=== PATIENT | male | born 1970 | race Caucasian/White ===

== ENCOUNTER 2023-11-08 12:47 | Inpatient (IN) | payer MEDICARE, MEDICAID ==
[~2023-11-08 12:47] MED LIST: Iopamidol 370 76% 100 ML VIAL ONE
[2023-11-08] MEDS ORDERED: Aspirin Chewable 81 MG TAB ONE (13:34)
[2023-11-08 14:31] LABS: #Basophils 0.06 10x3/uL (0.0-0.2); #Eosinphils 0.13 10x3/uL (0.0-0.5); #Monocytes 0.51 10x3/uL (0.0-1.1); #Neutrophils 5.57 10x3/uL (1.5-8.4); %Basophils 0.7 % (0.0-2.0); %Eosinophils 1.4 % (0.0-6.0); %Lymphocytes 30.5 % (18.0-47.0); %Monocytes 5.6 % (0.0-10.0); %Neutrophils 61.5 % (40.0-75.0); Hematocrit 50.4 % (38.8-50.0); Hemoglobin 17.4 g/dL (13.5-17.5); Mean Corpuscular HGB CONC 34.5 g/dL (32.0-36.0); Mean Corpuscular Hemoglobin 30.2 pg (27.0-33.0); Mean Corpuscular Volume 87.3 fL (81.2-95.1); Mean Platelet Volume 12.8 fL (7.4-10.4); Platelet Count 227 10x3/uL (150-450); RBC Distribution Width 13.8 % (11.5-14.5); Red Blood Cell (RBC) Count 5.77 10x6/uL (4.32-5.72); White Blood Cell (WBC) Count 9.1 10x3/uL (3.5-10.5)
[2023-11-08 14:37] LABS: Troponin I 0.017 ng/mL (< 0.028)
[2023-11-08 15:26] LABS: ALT (SGPT) 83 U/L (8-55); AST (SGOT) 49 U/L (5-34); Albumin 4.1 g/dL (3.5-5.0); Alkaline Phosphatase 63 U/L (40-110); Anion Gap 19 mmol/L (10-20); BUN (Urea Nitrogen) 13 mg/dL (8.4-25.7); Bilirubin, Total 0.7 mg/dL (0.2-1.2); Calc. Creatinine Clearance 0 mL/min (70-130); Calcium 9.9 mg/dL (7.8-10.44); Carbon Dioxide 20 mmol/L (22-29); Chloride 104 mmol/L (98-107); Estimated GFR 57; Globulin 3.3 g/dL (2.4-3.5); Glucose 140 mg/dL (70-105); Lipase 16 U/L (8-78); Potassium 3.8 mmol/L (3.5-5.1); Protein, Total 7.4 g/dL (6.0-8.3); Sodium 139 mmol/L (136-145)
[2023-11-08 16:11] LABS: Troponin I 0.016 ng/mL (< 0.028)
[2023-11-08] MEDS ORDERED: Ondansetron PF 4 MG/2 ML Vial IVP PRN (17:32)
[2023-11-08] MEDS ORDERED: hydrALAZINE 20 MG/ML VIAL SLOW IVP PRN (17:36)
[2023-11-08] MEDS ORDERED: Glucagon 1 MG/ML KIT IM PRN (17:37)
[2023-11-08] MEDS ORDERED: Dextrose 50% Abboject 50 ML SYRINGE SLOW IVP PRN (17:37)
[2023-11-08] MEDS ORDERED: Dextrose 5% in Water 1,000 ML IV PRN (17:37)
[2023-11-08 18:27] LABS: Troponin I 0.019 ng/mL (< 0.028)
[2023-11-08 18:37] VITALS: BMI 36.5
[2023-11-08] MEDS: Acetaminophen 325 MG TAB PO SCH (18:50)
[2023-11-08] MEDS: hydrALAZINE 25 MG TAB PO SCH (20:54)
[2023-11-08] MEDS: traMADol HCl 50 MG TAB PO PRN (20:55)
[2023-11-08] MEDS: Insulin Regular, Human 100 UNIT/ML 10 ML VIAL SC PRN (21:01)
[2023-11-08 21:26] LABS: Troponin I 0.019 ng/mL (< 0.028)
[2023-11-08] MEDS: Pantoprazole DR 40 MG TAB PO SCH (23:39)
[2023-11-09 05:22] LABS: #Basophils 0.06 10x3/uL (0.0-0.2); #Eosinphils 0.22 10x3/uL (0.0-0.5); #Monocytes 0.51 10x3/uL (0.0-1.1); #Neutrophils 4.15 10x3/uL (1.5-8.4); %Basophils 0.8 % (0.0-2.0); %Eosinophils 2.9 % (0.0-6.0); %Lymphocytes 35.7 % (18.0-47.0); %Monocytes 6.6 % (0.0-10.0); %Neutrophils 53.9 % (40.0-75.0); Hematocrit 42.5 % (38.8-50.0); Hemoglobin 14.6 g/dL (13.5-17.5); Mean Corpuscular HGB CONC 34.4 g/dL (32.0-36.0); Mean Corpuscular Hemoglobin 30.4 pg (27.0-33.0); Mean Corpuscular Volume 88.4 fL (81.2-95.1); Mean Platelet Volume 12.8 fL (7.4-10.4); Platelet Count 178 10x3/uL (150-450); RBC Distribution Width 13.9 % (11.5-14.5); Red Blood Cell (RBC) Count 4.81 10x6/uL (4.32-5.72); White Blood Cell (WBC) Count 7.7 10x3/uL (3.5-10.5)
[2023-11-09 05:25] LABS: Anion Gap 17 mmol/L (10-20); BUN (Urea Nitrogen) 17 mg/dL (8.4-25.7); Calc. Creatinine Clearance 150 mL/min (70-130); Calcium 8.5 mg/dL (7.8-10.44); Carbon Dioxide 19 mmol/L (22-29); Cardiac Risk 5.2 (Less than 4.5); Chloride 108 mmol/L (98-107); Cholesterol 141 mg/dl (< 200 Desired); Estimated GFR 77; Glucose 141 mg/dL (70-105); HDL Cholesterol 27 mg/dL (>60 Neg Risk); LDL Cholesterol, Calculated 69 mg/dL; Potassium 3.3 mmol/L (3.5-5.1); Sodium 141 mmol/L (136-145); Triglycerides 224 mg/dL (Less than 150)
[2023-11-09] MEDS ORDERED: Carvedilol 6.25 MG TAB PO SCH (08:00)
[2023-11-09] MEDS ORDERED: Fioricet 325/50/40 mg Tablet PO PRN (08:54)
[2023-11-09] MEDS ORDERED: Furosemide 40 MG TAB PO SCH (09:30)
[2023-11-09 10:18] LABS: Magnesium 1.3 mg/dL (1.6-2.6)
[2023-11-09] MEDS: Aspirin Chewable 81 MG TAB PO SCH (10:20)
[2023-11-09] MEDS: Lisinopril 5 MG TAB PO SCH (10:20)
[2023-11-09] MEDS: Amlodipine 10 MG TAB PO SCH (10:20)
[2023-11-09] MEDS: Fioricet 325/50/40 mg Tablet PO SCH (10:21)
[2023-11-09] MEDS: Carvedilol 12.5 MG TAB PO SCH ×2 (10:21→17:00)
[2023-11-09] MEDS: Potassium Chloride 20 MEQ TAB PO SCH (10:21)
[2023-11-09] MEDS ORDERED: Communication Order-Pharmacy FS SCH (11:00)
[2023-11-09] MEDS: Magnesium 2 GM/50 ML(in water) 2 GM in Premix 1 BAG IVPB SCH (13:28)
[2023-11-09 13:46] LABS: Hemoglobin A1c 6.4 % (4.0-6.0)
[2023-11-09 15:35] LABS: Bilirubin Neg (Negative); Blood, Urine Negative (Negative); Clarity Clear (Clear); Glucose, Urine (Dipstick) Normal (Negative); Ketone, Urine 5 mg/dL (Negative); Leukocyte 25 (Negative); Nitrite Negative (Negative); Protein, Urine (Dipstick) 15 mg/dl (Neg-Trace); Urobilinogen Normal mg/dL (Less than 2)
[2023-11-10 03:44] LABS: PTT 24.5 sec (22.0-33.0); Prothrombin Time 10.6 sec (9.5-12.1)
[2023-11-10 05:01] LABS: ALT (SGPT) 63 U/L (8-55); AST (SGOT) 34 U/L (5-34); Magnesium 2.1 mg/dL (1.6-2.6)
[2023-11-10 05:09] LABS: #Basophils 0.06 10x3/uL (0.0-0.2); #Eosinphils 0.24 10x3/uL (0.0-0.5); #Monocytes 0.46 10x3/uL (0.0-1.1); #Neutrophils 3.87 10x3/uL (1.5-8.4); %Basophils 0.8 % (0.0-2.0); %Eosinophils 3.3 % (0.0-6.0); %Lymphocytes 35.8 % (18.0-47.0); %Monocytes 6.4 % (0.0-10.0); %Neutrophils 53.4 % (40.0-75.0); Hematocrit 45.2 % (38.8-50.0); Mean Corpuscular HGB CONC 33.2 g/dL (32.0-36.0); Mean Corpuscular Volume 90.4 fL (81.2-95.1); Mean Platelet Volume 12.6 fL (7.4-10.4); Platelet Count 186 10x3/uL (150-450); RBC Distribution Width 13.8 % (11.5-14.5); White Blood Cell (WBC) Count 7.2 10x3/uL (3.5-10.5)
[2023-11-10 05:15] LABS: Albumin 3.2 g/dL (3.5-5.0); Alkaline Phosphatase 48 U/L (40-110); Anion Gap 12 mmol/L (10-20); BUN (Urea Nitrogen) 14 mg/dL (8.4-25.7); Bilirubin, Total 0.4 mg/dL (0.2-1.2); Calc. Creatinine Clearance 182 mL/min (70-130); Calcium 8.8 mg/dL (7.8-10.44); Carbon Dioxide 23 mmol/L (22-29); Chloride 108 mmol/L (98-107); Estimated GFR 97; Globulin 2.9 g/dL (2.4-3.5); Glucose 119 mg/dL (70-105); Potassium 3.5 mmol/L (3.5-5.1); Protein, Total 6.1 g/dL (6.0-8.3); Sodium 139 mmol/L (136-145)
[2023-11-10] MEDS ORDERED: Furosemide 40 MG TAB PO SCH (07:30)
[2023-11-10] MEDS ORDERED: Iopamidol 300 61% 100 ML VIAL FS ONE (09:01)
[2023-11-10] MEDS: Lisinopril 5 MG TAB PO SCH (10:13)
[2023-11-10] MEDS: Pantoprazole DR 40 MG TAB PO SCH (10:37)
[2023-11-10] MEDS ORDERED: Lidocaine 1% (PF) 30 ML VIAL ONE (10:48)
[2023-11-10] MEDS ORDERED: Heparin 10,000 UNITS/ 10 ML VIAL ONE (10:48)
[2023-11-10] MEDS ORDERED: Atropine Sulfate 1 mg/1 ml Vial ONE (10:48)
[2023-11-10] MEDS ORDERED: Nitroglycerin 50 MG/250 ML BOT 250 ML ONE (10:48)
[2023-11-10] MEDS ORDERED: Verapamil 5 MG/2 ML VIAL ONE (10:53)
[2023-11-10] MEDS ORDERED: Midazolam HCl 2 mg/2 ml Vial ONE (12:33)
[2023-11-10] MEDS ORDERED: fentaNYL 50 mcg/mL 1 mL Vial ONE (12:33)
[2023-11-10] MEDS ORDERED: Sodium Chloride 0.9% 200 ML IV PRN (13:31)
[2023-11-10] MEDS ORDERED: Nitroglycerin 0.4 MG TAB (25 Tab Bottle) SL PRN (13:31)
[2023-11-10] MEDS: Sodium Chloride 0.9% 1,000 ML IV SCH (17:18)
[2023-11-11] MEDS: Lisinopril 20 MG TAB PO SCH (08:44)
[2023-11-11] MEDS: Apixaban 5 MG TAB PO SCH (08:45)
[2023-11-11 09:23] VITALS: BP 169/93; TEMP 97.7
[2023-11-16 11:17] LABS: Aldosterone,TM <3.00 ug/24 hr (0.00-19.00); Aldosterone- Urine Less than 2.50 ug/L (Not Estab.)
== END 2023-11-11 10:39 | disposition home or self-care (01) | DRG 287 ==
LOC: CSHERS 12:47 → CSHERHOLD 17:34 → CSHTELE 21:11 → OBSVTOIN 11-11 08:44
PROVIDERS: ADMIT Family Medicine; ATTEND Family Medicine
PROC: 4A023N7 Measurement of Cardiac Sampling and Pressure, Left Heart, Percutaneous Approach (ICD-10-PCS; principal; 2023-11-09)
PROC: B2111ZZ Fluoroscopy of Multiple Coronary Arteries using Low Osmolar Contrast (ICD-10-PCS; 2023-11-09)
PROC: B2151ZZ Fluoroscopy of Left Heart using Low Osmolar Contrast (ICD-10-PCS; 2023-11-09)
DX: I16.0 Hypertensive urgency (principal); I50.32 Chronic diastolic (congestive) heart failure; I43 Cardiomyopathy in diseases classified elsewhere; E78.5 Hyperlipidemia, unspecified; K21.9 Gastro-esophageal reflux disease without esophagitis; G47.33 Obstructive sleep apnea (adult) (pediatric); E11.9 Type 2 diabetes mellitus without complications; I11.0 Hypertensive heart disease with heart failure; F32.A Depression, unspecified; F41.8 Other specified anxiety disorders; F17.210 Nicotine dependence, cigarettes, uncomplicated; E83.42 Hypomagnesemia; E87.6 Hypokalemia
CPT/HCPCS: 36415; 36416; 71045; 71275; 74177; 80048; 80053; 80061; 81003; 82088; 82533; 83036; 83690; 83735; 83880; 84244; 84484; 85025; 85610; 85730; 93005; 93306; 93458; 96360; 96361; 96374; 96376; 99152; C1769; C1894; G0378; J0461; J1644; J1815; J2001; J2250; J3010; J3475; J7030; Q9967